=== PATIENT | male | born 1955 | race Caucasian/White ===

== ENCOUNTER 2017-06-03 19:49 | Emergency (ER) | payer OTHER ==
[~2017-06-03] VITALS: Ht 182.9 cm; Wt 105.5 kg
[~2017-06-03 19:49] MED LIST: AMLO-110 PO; ASPI81TA21 PO; ATEN100T PO; ATV1 PO; DOXA1TAB86 PO; GABA400C PO; HYDC25 PO; LISI40TA PO; LPT/40 PO; RXC5 PO
[2017-06-03 19:52] VITALS: TEMP 36.3; Ht 182.9 cm; Wt 105.5 kg
[2017-06-03] MEDS ORDERED: CITA40TA4 PO (20:14)
[2017-06-03] MEDS ORDERED: LSN40 PO (20:14)
[2017-06-03] MEDS ORDERED: LPT40 PO (20:14)
[2017-06-03] MEDS ORDERED: NRN600 PO (20:14)
[2017-06-03] MEDS ORDERED: LSX20 PO (20:14)
[2017-06-03] MEDS ORDERED: ATV5X PO (20:18)
[2017-06-03 20:48] LABS: BASO % 0.4 %; BASO ABS # 0.03 K/uL (0-0.2); EOS % 2.6 %; EOS ABS # 0.18 K/uL (0-0.5); HEMATOCRIT 40.7 % (42-52); HEMOGLOBIN 14.3 g/dL (14.0-18.0); IG# 0.02 K/uL (0.00-0.02); LYMPH % 34.2 %; LYMPH ABS # 2.39 K/uL (1.2-3.4); MEAN CELL VOLUME 98.8 fL (80-100); MEAN CORPUSCULAR HEMOGLOBIN 34.7 pg (25-34); MEAN CORPUSCULAR HGB CONC 35.1 g/dl (32-36); MEAN PLATELET VOLUME 9.8 fL (7.4-10.4); MONO ABS # 0.63 K/uL (0.11-0.59); NEUT % 53.5 %; NEUT ABS # 3.73 K/uL (1.4-6.5); PLATELET COUNT 188 K/uL (130-400); WHITE BLOOD COUNT 6.98 K/uL (4.8-10.8)
[2017-06-03 21:11] LABS: ALBUMIN 3.7 gm/dl (3.4-5.0); CALCIUM 8.7 mg/dl (8.5-10.1); CREATININE 1.1 mg/dl (0.60-1.40); POTASSIUM 3.5 mmol/L (3.5-5.1)
[2017-06-03 21:16] LABS: CKMB 0.9 ng/ml (0.5-3.6); TOTAL PROTEIN 7.6 gm/dl (6.4-8.2)
--- NOTE | 2017-06-03 21:23 | DIAGNOSTIC IMAGING REPORT ---
HEAD WITHOUT CONTRAST (CT) CLINICAL HISTORY: 62 years-old Male with dizzy. Acute dizziness TECHNIQUE: Multiple axial CT images of the head were obtained without contrast. A dose lowering technique was utilized adhering to the principles of ALARA. CT DOSE: 1167.50 mGy.cm COMPARISON: CT head 05/07/2008. FINDINGS: No acute intracranial hemorrhage, midline shift, intracranial mass, hydrocephalus, territorial ischemia or abnormal extra-axial collection. Mild atrophy. Cerebral vascular calcifications are seen at the level of the skull base. The calvarium is intact. The mastoid air cells, and middle ear cavities are clear. Mild mucosal thickening of the ethmoid air cells and left frontal sinus. Tissues and orbits are unremarkable. IMPRESSION: No acute intracranial abnormality. The above report was generated using voice recognition software. It may contain grammatical, syntax or spelling errors. Electronically signed by: Issa Barker M.D. 06/03/2017 9:21 PM Dictated Date/Time: 06/03/2017 9:18 PM
--- NOTE | 2017-06-03 21:31 | DIAGNOSTIC IMAGING REPORT ---
CERVICAL SPINE W/O CLINICAL HISTORY: 62 years-old Male with eval for neck pain. Acute neck pain status post trauma COMPARISON: CT head of same day, CT cervical spine 05/07/2008. TECHNIQUE: Multiple axial CT images of the cervical spine were obtained without contrast. A dose lowering technique was utilized adhering to the principles of ALARA. FINDINGS: Postoperative changes with partial corpectomy at C6 along with anterior plate and screw fusion at C4-C7. The right C7 screw entrance mild volar displacement of approximately 4 mm in relation to the other screws. No evidence of hardware fracture. No perihardware lucencies are seen. Chondrocalcinosis of the bilateral sternoclavicular joints and disc spaces. There is no acute fracture or subluxation identified. Progressively worsened discogenic degenerative changes are noted at T1-T2. Severe facet arthrosis at C3-C4 and C4-C5 with fusion of the left C4-C5 facets. Moderate sized posterior disc ossify complex formation at C3-C4. No high-grade central canal narrowing identified. Moderate to severe bilateral foraminal stenosis is suggested at the C4-C5 level with severe bilateral foraminal stenosis at C5-C6 and C6-C7. There is no prevertebral soft tissue swelling. Mildly heterogeneous appearance of the thyroid without dominant nodule identified. Lung apices appear clear. IMPRESSION: 1. No acute cervical spine fracture or subluxation identified. 2. Postoperative changes with anterior plate and screw fusion hardware of the C4-C7 levels with partial corpectomy changes at C6. 3. Multilevel degenerative changes of the cervical spine as above. The above report was generated using voice recognition software. It may contain grammatical, syntax or spelling errors. Electronically signed by: Issa Barker M.D. 06/03/2017 9:30 PM Dictated Date/Time: 06/03/2017 9:22 PM
[2017-06-03 21:38] LABS: PTT PATIENT 25.8 SECONDS (21.0-31.0)
--- NOTE | 2017-06-03 21:43 | DIAGNOSTIC IMAGING REPORT ---
CHEST ONE VIEW PORTABLE HISTORY: 62 years-old Male CHEST PAIN acute atypical chest pain COMPARISON: Chest radiograph 12/01/2011 TECHNIQUE: Portable AP view of the chest FINDINGS: Cardiac silhouette is mildly enlarged. Atherosclerosis of the aorta. No pneumothorax, pleural effusion, focal airspace consolidation or overt pulmonary edema. Bones of the chest appear grossly intact. Mild dextroscoliosis of the midthoracic spine. Fusion hardware of the cervical spine is noted. IMPRESSION: No acute process. The above report was generated using voice recognition software. It may contain grammatical, syntax or spelling errors. Electronically signed by: Issa Barker M.D. 06/03/2017 9:41 PM Dictated Date/Time: 06/03/2017 9:40 PM
--- NOTE | 2017-06-03 23:22 | EMERGENCY ROOM VISIT NOTE ---
History Report prepared by Rand: Rick Alegria Under the Supervision of: Dr. Oliver Clayton M.D. First contact with patient: 20:13 Chief Complaint: WEAKNESS Stated Complaint: WEAKNESS,DIZZINESS,FEAR OF FALLING History of Present Illness The patient is a 62 year old male who presents to the Emergency Room with complaints of persistent general dizziness that began at 0600 two days ago. The patient has a history of cervical hardware. He reports chronic neck pain. He states that his neck pain initially radiated to his chest and he was developing symptoms related to possible KS, though he had an exercise-based stress test, which was normal. He denies any current chest pain. He states that his neck pain began to radiate upwards towards his head in November 2016. He states the pain in his neck has worsened and is radiating through his right ear and to the top of his head. He notes ear pain in right ear. He states that it feels like it is clogged from the inside. He notes that he woke up with dizziness two days ago with a feeling like the room was spinning and he had to hold onto a wall to maintain his balance. He states that he began to have a panic attack due to fear of falling down. He reports tingling sensations all over his body at the time. He reports baseline tingling in his fingers. He notes baseline 18% strength in his right hand and is scheduled to have an EMG June 12, 2017. He reports baseline numbness and tingling in right leg. He states his hands and feet have been abnormally cold. He states that he went to turn his head on his pillow last night and he felt like the room was spinning, so he kept his head straight and then he felt like the ceiling was spinning. He reports having similar symptoms while in a store at 1700 today. He felt like he was going to fall down due to weakness. He recorded his blood pressure as 114/64 and his pulse was 66. He states that he has been drinking well. He denies any shortness of breath or abdominal pain. He denies any visual changes or speech problems. He denies any falls or head injuries. He also reports a history of three episodes of dysphagia six months prior to his neck surgery. He denies any current difficulty swallowing or tooth pain. He regularly takes Aspirin. Source of History: patient Onset: 0600 two days ago Position: other (general) Quality: other (dizziness) Timing: other (persistent) Associated Symptoms: + neck pain, + weakness, + numbness, No chest pain, No SOB, No abdominal pain Note: He notes right ear pain and head pain. He notes feeling like the room is spinning. He notes tingling sensation and abnormal coldness. He denies any visual changes or speech problems. He denies any falls or head injuries. He denies any current difficulty swallowing or tooth pain. Review of Systems See HPI for pertinent positives & negatives. A total of 10 systems reviewed and were otherwise negative. Past Medical & Surgical Medical Problems: (1) cervical hardware (2) Cervical stenosis of spinal canal (3) HTN (hypertension) Surgical Problems: (1) History of back surgery Old medical records were reviewed. Nurse's notes were reviewed and I agree with. Family History Diabetes mellitus FHx: cancer Social History Smoking Status: Current Every Day Smoker (1 ppd) Alcohol Use: occasionally (2/week) Drug Use: none Marital Status: single Housing Status: lives alone Occupation Status: employed Current/Historical Medications Scheduled Amlodipine (Norvasc), 5 MG PO QAM Aspirin Enteric Coated (Ecotrin Or Generic), 81 MG PO QAM Atenolol (Tenormin), 100 MG PO QAM Atorvastatin (Lipitor), 40 MG PO DAILY Citalopram (Citalopram Hydrobromide), 40 MG PO DAILY Doxazosin Mesylate (Doxazosin Mesylate), 4 MG PO HS Furosemide (Furosemide), 20 MG PO DAILY Gabapentin (Gabapentin), 600 MG PO TID Lisinopril (Lisinopril), 40 MG PO DAILY Scheduled PRN Lorazepam (Lorazepam), 0.25-0.5 MG PO BID PRN for Anxiety Allergies Coded Allergies: No Known Allergies (Unverified , 02/26/15) Physical Exam Vital Signs Date Time Temp Pulse Resp B/P (MAP) Pulse Ox O2 Delivery O2 Flow Rate FiO2 06/03/17 23:32 80 18 110/50 98 06/03/17 21:29 73 20 137/63 97 Room Air 06/03/17 20:08 87 06/03/17 19:52 36.3 87 18 167/82 94 Room Air Physical Exam General: Non-ill appearing middle-aged male in no acute distress. HEENT: Normal cephalic atraumatic. Pupils are equal round and reactive to light. Extraocular movements are intact. Oropharynx is pink with moist mucous membranes. No swelling of the mouth lips or tongue. Neck: Supple with a midline trachea. No meningeal signs or stiffness, no JVD or bruits. No Stridor. Chest: Clear to auscultation bilaterally. No wheezes or rhonchi. No increased work of breathing. Heart: regular rate and rhythm. Abdomen: Soft nontender, nondistended without rebound guarding or rigidity. Extremities: No cyanosis clubbing or edema. No calf tenderness or assymetry Spine/Back. Non tender to palpation. No CVA tenderness Skin: Good turgor without rashes. Neurologic exam: Alert and oriented x3. Very talkative. Cranial nerves two through 12 are intact. Motor and sensation are intact and symmetrical throughout. 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 Medical Decision & Procedures ER Provider Diagnostic Interpretation: Radiology results as stated below per my review and radiologist interpretation: HEAD WITHOUT CONTRAST (CT) CLINICAL HISTORY: 62 years-old Male with dizzy. Acute dizziness TECHNIQUE: Multiple axial CT images of the head were obtained without contrast. A dose lowering technique was utilized adhering to the principles of ALARA. CT DOSE: 1167.50 mGy.cm COMPARISON: CT head 05/07/2008. FINDINGS: No acute intracranial hemorrhage, midline shift, intracranial mass, hydrocephalus, territorial ischemia or abnormal extra-axial collection. Mild atrophy. Cerebral vascular calcifications are seen at the level of the skull base. The calvarium is intact. The mastoid air cells, and middle ear cavities are clear. Mild mucosal thickening of the ethmoid air cells and left frontal sinus. Tissues and orbits are unremarkable. IMPRESSION: No acute intracranial abnormality. The above report was generated using voice recognition software. It may contain grammatical, syntax or spelling errors. Electronically signed by: Issa Barker M.D. 06/03/2017 9:21 PM Dictated Date/Time: 06/03/2017 9:18 PM CHEST ONE VIEW PORTABLE HISTORY: 62 years-old Male CHEST PAIN acute atypical chest pain COMPARISON: Chest radiograph 12/01/2011 TECHNIQUE: Portable AP view of the chest FINDINGS: Cardiac silhouette is mildly enlarged. Atherosclerosis of the aorta. No pneumothorax, pleural effusion, focal airspace consolidation or overt pulmonary edema. Bones of the chest appear grossly intact. Mild dextroscoliosis of the midthoracic spine. Fusion hardware of the cervical spine is noted. IMPRESSION: No acute process. The above report was generated using voice recognition software. It may contain grammatical, syntax or spelling errors. Electronically signed by: Issa Barker M.D. 06/03/2017 9:41 PM Dictated Date/Time: 06/03/2017 9:40 PM CERVICAL SPINE W/O CLINICAL HISTORY: 62 years-old Male with eval for neck pain. Acute neck pain status post trauma COMPARISON: CT head of same day, CT cervical spine 05/07/2008. TECHNIQUE: Multiple axial CT images of the cervical spine were obtained without contrast. A dose lowering technique was utilized adhering to the principles of ALARA. FINDINGS: Postoperative changes with partial corpectomy at C6 along with anterior plate and screw fusion at C4-C7. The right C7 screw entrance mild volar displacement of approximately 4 mm in relation to the other screws. No evidence of hardware fracture. No perihardware lucencies are seen. Chondrocalcinosis of the bilateral sternoclavicular joints and disc spaces. There is no acute fracture or subluxation identified. Progressively worsened discogenic degenerative changes are noted at T1-T2. Severe facet arthrosis at C3-C4 and C4-C5 with fusion of the left C4-C5 facets. Moderate sized posterior disc ossify complex formation at C3-C4. No high-grade central canal narrowing identified. Moderate to severe bilateral foraminal stenosis is suggested at the C4-C5 level with severe bilateral foraminal stenosis at C5-C6 and C6-C7. There is no prevertebral soft tissue swelling. Mildly heterogeneous appearance of the thyroid without dominant nodule identified. Lung apices appear clear. IMPRESSION: 1. No acute cervical spine fracture or subluxation identified. 2. Postoperative changes with anterior plate and screw fusion hardware of the C4-C7 levels with partial corpectomy changes at C6. 3. Multilevel degenerative changes of the cervical spine as above. The above report was generated using voice recognition software. It may contain grammatical, syntax or spelling errors. Electronically signed by: Issa Barker M.D. 06/03/2017 9:30 PM Dictated Date/Time: 06/03/2017 9:22 PM Laboratory Results 06/03/17 20:40 Red Blood Count 4.12, Mean Corpuscular Volume 98.8, Mean Corpuscular Hemoglobin 34.7, Mean Corpuscular Hemoglobin Concent 35.1, Mean Platelet Volume 9.8, Neutrophils (%) (Auto) 53.5, Lymphocytes (%) (Auto) 34.2, Monocytes (%) (Auto) 9.0, Eosinophils (%) (Auto) 2.6, Basophils (%) (Auto) 0.4, Neutrophils # (Auto) 3.73, Lymphocytes # (Auto) 2.39, Monocytes # (Auto) 0.63, Eosinophils # (Auto) 0.18, Basophils # (Auto) 0.03 06/03/17 20:40 Test 06/03/17 20:40 06/03/17 21:20 06/03/17 22:03 White Blood Count 6.98 K/uL (4.8-10.8) Red Blood Count 4.12 M/uL (4.7-6.1) Hemoglobin 14.3 g/dL (14.0-18.0) Hematocrit 40.7 % (42-52) Mean Corpuscular Volume 98.8 fL (80-100) Mean Corpuscular Hemoglobin 34.7 pg (25-34) Mean Corpuscular Hemoglobin Concent 35.1 g/dl (32-36) Platelet Count 188 K/uL (130-400) Mean Platelet Volume 9.8 fL (7.4-10.4) Neutrophils (%) (Auto) 53.5 % Lymphocytes (%) (Auto) 34.2 % Monocytes (%) (Auto) 9.0 % Eosinophils (%) (Auto) 2.6 % Basophils (%) (Auto) 0.4 % Neutrophils # (Auto) 3.73 K/uL (1.4-6.5) Lymphocytes # (Auto) 2.39 K/uL (1.2-3.4) Monocytes # (Auto) 0.63 K/uL (0.11-0.59) Eosinophils # (Auto) 0.18 K/uL (0-0.5) Basophils # (Auto) 0.03 K/uL (0-0.2) RDW Standard Deviation 50.0 fL (36.4-46.3) RDW Coefficient of Variation 14.0 % (11.5-14.5) Immature Granulocyte % (Auto) 0.3 % Immature Granulocyte # (Auto) 0.02 K/uL (0.00-0.02) Anion Gap 7.0 mmol/L (3-11) Est Creatinine Clear Calc Drug Dose 88.5 ml/min Estimated GFR () 83.5 Estimated GFR (Non- 72.1 BUN/Creatinine Ratio 15.0 (10-20) Calcium Level 8.7 mg/dl (8.5-10.1) Total Bilirubin 0.4 mg/dl (0.2-1) Direct Bilirubin 0.1 mg/dl (0-0.2) Aspartate Amino Transf (AST/SGOT) 18 U/L (15-37) Alanine Aminotransferase (ALT/SGPT) 28 U/L (12-78) Alkaline Phosphatase 74 U/L (45-117) Total Creatine Kinase 115 U/L (39-308) Creatine Kinase MB 0.9 ng/ml (0.5-3.6) Creatine Kinase MB Ratio 0.8 (0-3.0) Total Protein 7.6 gm/dl (6.4-8.2) Albumin 3.7 gm/dl (3.4-5.0) Lipase 206 U/L (73-393) Prothrombin Time 10.5 SECONDS (9.0-12.0) Prothromb Time International Ratio 1.0 (0.9-1.1) Activated Partial Thromboplast Time 25.8 SECONDS (21.0-31.0) Partial Thromboplastin Ratio 1.0 Bedside Troponin I < 0.030 ng/ml (0-0.045) Laboratory studies as stated above per my review. ECG Per My Interpretation Indication: weakness Rate (beats per minute): 74 Rhythm: normal sinus Findings: other (RAD. Low voltage) Comparison ECG Date: Low voltage has decreased when compared to 11/30/2016 ED Course 2015: Past medical records reviewed. The patient was evaluated in room B6, and a complete history and physical examination were performed. RA: 1005: I reassessed the patient at this time. He is resting. 2320: I reassessed the patient at this time. I discussed the results and treatment plan with the patient. I answered all pertaining questions that he had. He expressed understanding and verbalized agreement. The patient will be discharged home. Medical Decision Differentials include, but are not limited to: CVA, TIA, vertigo, arrhythmia, and electrolyte or metabolic abnormality. This patient comes in as described above. He has been having episodes of brief dizziness lasting a few seconds when he turns his head only. Besides this he has no other acute symptoms. he had no syncope, chest pain, or shortness of breath. he has had some nerve problems and has some baseline weakness of his right arm and may be in the right leg but he says these are completely unchanged. he has chronic neck pain but that is unchanged .he has had no fevers and had no trauma. He has no headache. He has had some ear fullness at times. On exam, the ear canals are open. He has a normal neurologic exam. EKG does not suggest acute coronary syndrome or arrhythmia. He has no acute electrolyte or metabolic abnormalities. Skin of the head was unremarkable CAT scan of the neck shows chronic changes but nothing acute. This is clearly positional with certain ways he moves his head intermittently and it may be more vertiginous. He looks well. He has no neurologic deficits. I will discharge him home. I recommend he follow-up with his regular doctor and return if worsening symptoms , numbness or weakness, any new problems or concerns. He was happy to plan discharge home Medication Reconcilliation Current Medication List: was personally reviewed by me Blood Pressure Screening Patient's blood pressure: Elevated blood pressure Blood pressure disposition: Elevated BP felt to be situational Impression Primary Impression: Vertigo Scribe Attestation The scribe's documentation has been prepared under my direction and personally reviewed by me in its entirety. I confirm that the note above accurately reflects all work, treatment, procedures, and medical decision making performed by me. Departure Information Dispostion Home / Self-Care Referrals No Doctor, Assigned (PCP) Forms HOME CARE DOCUMENTATION FORM, IMPORTANT VISIT INFORMATION Patient Instructions My [facility] [employer] Additional Instructions Rest Drink plenty of fluids Return if: worsening of symptoms, fever, chest pain,numbness or weakness, any new problems or concerns Follow-up with your doctor in 1-2 days for recheck
[2017-06-03 23:32] VITALS: BP 110/50; PULSE 80; O2SAT 98
== END 2017-06-03 23:33 | disposition home or self-care (01) ==
LOC: C.EDB 19:50
DX: R42 Dizziness and giddiness (principal); M54.2 Cervicalgia; G89.29 Other chronic pain; R20.2 Paresthesia of skin; R53.1 Weakness; I10 Essential (primary) hypertension; F17.200 Nicotine dependence, unspecified, uncomplicated; Z96.9 Presence of functional implant, unspecified; Z79.82 Long term (current) use of aspirin; Z83.3 Family history of diabetes mellitus